=== PATIENT | male | born 1995 | race Caucasian/White ===

== ENCOUNTER → 2020-09-22 11:11 | Outpatient (CLI) | payer OTHER, SELFPAY ==
[2020-09-22 14:46] LABS: Intact Parathyroid Hormone 57.5 pg/mL (7.5-53.5)
[2020-09-24 10:17] LABS: HIV Screen 4th Generation wRfx Non Reactive (Non Reactive)
== END ==
PROVIDERS: Visit Provider Internal Medicine Adolescent Medicine
DX: E83.52 Hypercalcemia (principal)
CPT/HCPCS: 36415; 83970; 86703; G0432